=== PATIENT | male | born 1940 | race Caucasian/White ===

== ENCOUNTER 2018-11-07 12:28 | Emergency (ER) | payer MEDICARE ==
[~2018-11-07] VITALS: Ht 177.8 cm; Wt 72.6 kg
--- NOTE | 2018-11-07 13:22 | EKG ---
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
--- NOTE | 2018-11-07 13:36 | RAD ---
PORTABLE CHEST 1V Clinical indications: dizziness COMPARISON: None available. Findings: No acute lung infiltrate or pleural effusion or pulmonary edema or lung mass or pneumothorax is seen. The heart size, pulmonary vasculature, mediastinum and both casandra are unremarkable. Impression: No acute radiographic abnormality is seen. Electronically signed by: Sahil Larsen MD (11/07/2018 1:31 PM) [id number]
[2018-11-07 13:48] LABS: BASO % 1 % (0-3); EOS # 0.1 x10^3/uL (0.0-0.7); EOS % 1 % (0-3); HEMATOCRIT 41.9 % (39.0-53.0); HEMOGLOBIN 13.7 g/dL (13.0-17.5); LYMPH # 1.2 x10^3/uL (1.0-4.8); LYMPH % 21 % (24-48); MEAN CORPUSCULAR HEMOGLOBIN 29 pg (25-35); MEAN CORPUSCULAR HGB CONC 33 g/dL (31-37); MEAN CORPUSCULAR VOLUME 87 fL (79-100); MONO # 0.6 x10^3/uL (0.0-1.1); MONO % 10 % (0-9); NEUT # 3.8 x10^3uL (1.8-7.7); NEUT % 67 % (31-73); PLATELET COUNT 270 x10^3/uL (140-400); RED BLOOD COUNT 4.82 x10^6/uL (4.30-5.70); RED CELL DISTRIBUTION WIDTH 14.6 % (11.5-14.5); WHITE BLOOD COUNT 5.7 x10^3/uL (4.0-11.0)
--- NOTE | 2018-11-07 13:55 | PHYS DOC ---
Past Medical History Past Medical History: Arthritis, Hypertension, Hypothyroid, Other Additional Past Medical Histor: RIGHT KNEE ARTHRITIS, LOWER BACK SPINAL STENOSIS 2011 Past Surgical History: Other Additional Past Surgical Histo: RIGHT LEG Fx Alcohol Use: Occasionally Additional Information: DAILY BEER Drug Use: None Adult General Chief Complaint Chief Complaint: DIZZY/LIGHT HEADED [facility] HPI Patient is a 78 year old male who presents with patient states that he's had dizziness, generalized weakness, scalp tenderness, "head feeling weird", the last 2 weeks. Patient states that 2 weeks ago the doctor irritation from metoprolol to lisinopril. Patient states that he thinks that the symptoms really started when he began being black male by another woman he was seen and became very stressed because family will told him to leave her. 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 Patient denies chest pain, shortness of air, nausea, vomiting, diarrhea, recent illness. Patient states he's also had a decreased appetite. Patient's history is hypothyroidism, hypertension, right knee surgery. No known drug allergies. Review of Systems Review of Systems Constitutional: Denies fever or chills [] Eyes: Denies change in visual acuity, redness, or eye pain [] HENT: Denies nasal congestion or sore throat [] Respiratory: Denies cough or shortness of breath [] Cardiovascular: No additional information not addressed in HPI [] GI: Denies abdominal pain, nausea, vomiting, bloody stools or diarrhea [] : Denies dysuria or hematuria [] Musculoskeletal: Denies back pain or joint pain [] Integument: Denies rash or skin lesions [] Neurologic: Dizziness, generalized weakness headache, denies focal weakness or sensory changes [] All other systems were reviewed and found to be within normal limits, except as documented in this note. Physical Exam Physical Exam Constitutional: Well developed, well nourished, no acute distress, non-toxic appearance. [] HENT: Normocephalic, atraumatic, bilateral external ears normal, oropharynx moist, no oral exudates, nose normal. [] Eyes: PERRLA, EOMI, conjunctiva normal, no discharge. [] Neck: Normal range of motion, no tenderness, supple, no stridor. [] Cardiovascular:Heart rate regular rhythm, no murmur [] Lungs & Thorax: Bilateral upper breath sounds clear to auscultation in lower diminished[] Abdomen: Bowel sounds normal, soft, no tenderness, no masses, no pulsatile masses. [] Skin: Warm, dry, no erythema, no rash. [] Back: No tenderness, no CVA tenderness. [] Extremities: No tenderness, no cyanosis, no clubbing, ROM intact, no edema. [] Neurologic: Alert and oriented X 3, normal motor function, normal sensory function, no focal deficits noted. [] Psychologic: Affect normal, judgement normal, mood normal. [] Current Patient Data Vital Signs Vital Signs Date Time Temp Pulse Resp B/P (MAP) Pulse Ox O2 Delivery O2 Flow Rate FiO2 11/07/18 12:45 98.2 65 16 208/96 (133) 99 Room Air 98.2 Lab Values Laboratory Tests Test 11/07/18 13:35 11/07/18 13:50 White Blood Count 5.7 x10^3/uL (4.0-11.0) Red Blood Count 4.82 x10^6/uL (4.30-5.70) Hemoglobin 13.7 g/dL (13.0-17.5) Hematocrit 41.9 % (39.0-53.0) Mean Corpuscular Volume 87 fL (79-100) Mean Corpuscular Hemoglobin 29 pg (25-35) Mean Corpuscular Hemoglobin Concent 33 g/dL (31-37) Red Cell Distribution Width 14.6 % (11.5-14.5) H Platelet Count 270 x10^3/uL (140-400) Neutrophils (%) (Auto) 67 % (31-73) Lymphocytes (%) (Auto) 21 % (24-48) L Monocytes (%) (Auto) 10 % (0-9) H Eosinophils (%) (Auto) 1 % (0-3) Basophils (%) (Auto) 1 % (0-3) Neutrophils # (Auto) 3.8 x10^3uL (1.8-7.7) Lymphocytes # (Auto) 1.2 x10^3/uL (1.0-4.8) Monocytes # (Auto) 0.6 x10^3/uL (0.0-1.1) Eosinophils # (Auto) 0.1 x10^3/uL (0.0-0.7) Basophils # (Auto) 0.0 x10^3/uL (0.0-0.2) Sodium Level 138 mmol/L (136-145) Potassium Level 4.4 mmol/L (3.5-5.1) Chloride Level 104 mmol/L (98-107) Carbon Dioxide Level 29 mmol/L (21-32) Anion Gap 5 (6-14) L Blood Urea Nitrogen 17 mg/dL (8-26) Creatinine 1.1 mg/dL (0.7-1.3) Estimated GFR (Cockcroft-Gault) 64.6 BUN/Creatinine Ratio 15 (6-20) Glucose Level 110 mg/dL (70-99) H Calcium Level 9.4 mg/dL (8.5-10.1) Total Bilirubin 0.4 mg/dL (0.2-1.0) Aspartate Amino Transferase (AST) 18 U/L (15-37) Alanine Aminotransferase (ALT) 23 U/L (16-63) Alkaline Phosphatase 93 U/L (46-116) Troponin I Quantitative < 0.017 ng/mL (0.000-0.055) Total Protein 7.5 g/dL (6.4-8.2) Albumin 3.6 g/dL (3.4-5.0) Albumin/Globulin Ratio 0.9 (1.0-1.7) L Urine Collection Type Unknown Urine Color Yellow Urine Clarity Clear Urine pH 6.0 Urine Specific [place] 1.020 Urine Protein Negative mg/dL (NEG-TRACE) Urine Glucose (UA) Negative mg/dL (NEG) Urine Ketones (Stick) Negative mg/dL (NEG) Urine Blood Negative (NEG) Urine Nitrite Negative (NEG) Urine Bilirubin Negative (NEG) Urine Urobilinogen Dipstick 0.2 mg/dL (0.2 mg/dL) Urine Leukocyte Esterase Negative (NEG) Urine RBC Occ /HPF (0-2) Urine WBC Occ /HPF (0-4) Urine Squamous Epithelial Cells Few /LPF Urine Bacteria 0 /HPF (0-FEW) Laboratory Tests 11/07/18 13:35 Laboratory Tests 11/07/18 13:35 EKG EKG Sinus rhythm and no STEMI[] Interpretation Time: [address] Lopez Radiology/Procedures Radiology/Procedures Chest x-ray Impressions: [facility] [address] [place] [address] IMAGING REPORT Signed PATIENT: EN STORY ACCOUNT: [id number] : 1940 LOCATION: ER AGE: 78 SEX: M EXAM STATUS: REG ER ORD. PHYSICIAN: AUGIE WRIGHT APRN REASON: dizziness PROCEDURE: PORTABLE CHEST 1V PORTABLE CHEST 1V Clinical indications: dizziness COMPARISON: None available. Findings: No acute lung infiltrate or pleural effusion or pulmonary edema or lung mass or pneumothorax is seen. The heart size, pulmonary vasculature, mediastinum and both casandra are unremarkable. Impression: No acute radiographic abnormality is seen. Electronically signed by: Paulette Larsen MD (11/07/2018 1:31 PM) [place] [id number] DICTATED and SIGNED BY: PAULETTE LARSEN MD DATE: 11/07/[address] [address] IMAGING REPORT Signed PATIENT: EN STORY ACCOUNT: [id number] : 1940 LOCATION: ER AGE: 78 SEX: M EXAM STATUS: REG ER ORD. PHYSICIAN: AUGIE WRIGHT APRN REASON: dizziness, weakness PROCEDURE: CT HEAD WO CONTRAST CT HEAD WO CONTRAST History: Dizziness and weakness Comparison: None. Technique: Noncontrast CT imaging was performed of the head. Exposure: One or more of the following individualized dose reduction techniques were utilized for this examination: 1. Automated exposure control 2. Adjustment of the mA and/or kV according to patient size 3. Use of iterative reconstruction technique. Findings: No acute extra-axial or parenchymal hemorrhage is identified. There is no significant intra-axial mass effect, midline shift, or extra-axial fluid collection. The burgos-white differentiation of the major vascular territories is preserved. The ventricles, sulci, and cisterns are within normal limits in size and configuration. The mastoid air cells and the visualized paranasal sinuses are aerated. No acute calvarial abnormality is identified. There is some atherosclerotic calcification of the carotid siphons bilaterally. Impression: 1. No acute intracranial abnormality is identified by CT. Electronically signed by: Katherine Sheppard MD (11/07/2018 2:17 PM) [id number] DICTATED and SIGNED BY: KATHERINE SHEPPARD MD DATE: 11/07/18 1415 Course & Med Decision Making Course & Med Decision Making Patient is a 78 year old male who presents with patient states that he's had dizziness, generalized weakness, scalp tenderness, "head feeling weird", the last 2 weeks. Patient states that 2 weeks ago the doctor irritation from metoprolol to lisinopril. Patient states that he thinks that the symptoms really started when he began being black male by another woman he was seen and became very stressed because family will told him to leave her. 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 Patient denies chest pain, shortness of air, nausea, vomiting, diarrhea, recent illness, numbness or tingling. Patient states he's also had a decreased appetite. Patient's history is hypothyroidism, hypertension, right knee surgery. No known drug allergies. Alert and oriented. Skin pink warm and dry. Neurologically intact. Speaks in full clear sentences. Denies any visual changes. Patient ambulatory with a steady gait. Patient has no peripheral edema. Lungs are clear in upper lobes but diminished in lower lobes. PERRLA. Vital signs are 65 heart rate, 98% on room air, 16 respirations, 98.2. Patient denies any pain at this time. Patient denies any of his symptoms at this time. Chest x-ray shows no acute findings. EKG shows sinus rhythm and no STEMI. Labwork unremarkable. Urine shows no infection. 1425: BP 180/91. CT head shows no acute findings. The patient's physical exam is unremarkable. Patient states more relaxed. Dr. Lopez and I have gone in and talked to the patient. Patient is going to follow- up with his primary care doctor to change his blood pressure medications. He'll return if his headache is intense, increased dizziness, syncope, numbness or tingling, weaknesses, nausea or vomiting. Dragon Disclaimer Dragon Disclaimer This electronic medical record was generated, in whole or in part, using a voice recognition dictation system. Departure Departure Impression: Primary Impression: Hypertension Disposition: HOME, SELF-CARE Condition: STABLE Referrals: BERNADETTE MCDONALD MD (PCP) Patient Instructions: Hypertension Additional Instructions: Patient to follow-up with his primary care doctor to change his blood pressure medications. He'll return if his headache is intense, increased dizziness, syncope, numbness or tingling, weaknesses, nausea or vomiting. NIHSS Stroke Scale NIH Stroke Scale: NIH Stroke Scale Response (Comments) Value Level of Consciousness: 0 Alert/Responsive 0 LOC Questions: 0 Answers both correctly 0 LOC Commands: 0 Performs both tasks 0 Best Gaze: 0 Normal 0 Visual: 0 No visual loss 0 Facial Palsy: 0 Normal, symmetrical 0 Motor - Left Arm 0 No drift 0 Motor - Right Arm 0 No drift 0 Motor - Left Leg 0 No drift 0 Motor: Right Leg 0 No drift 0 Limb Ataxia: 0 Absent 0 Sensory: 0 No loss 0 Best Language: 0 Normal 0 Dysathria: 0 Normal 0 Extinction and Inattention: 0 Normal 0 Total 0 Problem Qualifiers Primary Impression: Hypertension Hypertension type: unspecified Qualified Codes: I10 - Essential (primary) hypertension AUGIE WRIGHT ARTS MANAGER Nov 07, 2018 13:55
[2018-11-07 13:59] LABS: CALCIUM 9.4 mg/dL (8.5-10.1); CREATININE 1.1 mg/dL (0.7-1.3); GFR 64.6; POTASSIUM 4.4 mmol/L (3.5-5.1)
[2018-11-07 14:04] LABS: ALBUMIN 3.6 g/dL (3.4-5.0); ALBUMIN/GLOBULIN RATIO 0.9 (1.0-1.7); TOTAL BILIRUBIN 0.4 mg/dL (0.2-1.0); TOTAL PROTEIN 7.5 g/dL (6.4-8.2)
[2018-11-07 14:05] LABS: BILIRUBIN,URINE NEGATIVE (NEG); CLARITY,URINE CLEAR; COLOR,URINE YELLOW; NITRITE,URINE NEGATIVE (NEG); PROTEIN,URINE NEGATIVE (NEG-TRACE); UROBILINOGEN,URINE 0.2 mg/dL (0.2 mg/dL)
[2018-11-07 14:17] LABS: BACTERIA,URINE 0 /HPF (0-FEW); RBC,URINE OCC /HPF (0-2); SQUAMOUS EPITHELIAL CELL,UR FEW /LPF; WBC,URINE OCC /HPF (0-4)
--- NOTE | 2018-11-07 14:21 | RAD ---
CT HEAD WO CONTRAST History: Dizziness and weakness Comparison: None. Technique: Noncontrast CT imaging was performed of the head. Exposure: One or more of the following individualized dose reduction techniques were utilized for this examination: 1. Automated exposure control 2. Adjustment of the mA and/or kV according to patient size 3. Use of iterative reconstruction technique. Findings: No acute extra-axial or parenchymal hemorrhage is identified. There is no significant intra-axial mass effect, midline shift, or extra-axial fluid collection. The burgos-white differentiation of the major vascular territories is preserved. The ventricles, sulci, and cisterns are within normal limits in size and configuration. The mastoid air cells and the visualized paranasal sinuses are aerated. No acute calvarial abnormality is identified. There is some atherosclerotic calcification of the carotid siphons bilaterally. Impression: 1. No acute intracranial abnormality is identified by CT. Electronically signed by: Carl Sorto MD (11/07/2018 2:17 PM) [id number]
[2018-11-07 15:50] VITALS: BP 186/90
== END 2018-11-07 15:20 | disposition home or self-care (01) ==
LOC: ER 12:28
DX: I10 Essential (primary) hypertension (principal); R53.1 Weakness; E03.9 Hypothyroidism, unspecified; R51 Headache
CPT/HCPCS: 36415; 70450; 71045; 80053; 81001; 84484; 85025; 93005; 99284-25